=== PATIENT | female | born 1995 | race African-American/Black ===

== ENCOUNTER 2023-05-01 12:17 | Emergency (ER) | payer MEDICAID ==
[~2023-05-01] VITALS: Ht 170.2 cm; Wt 61.0 kg
[2023-05-01 12:33] VITALS: BP 121/79; PULSE 92; RESP 16; TEMP 98; O2SAT 100
[2023-05-01 13:28] LABS: CLARITY URINE CLEAR (CLEAR); COLOR URINE YELLOW (YELLOW); GLUCOSE URINE NEGATIVE (NEGATIVE); KETONES URINE 1+ (NEGATIVE); LEUKOCYTE ESTERASE URINE NEGATIVE (NEGATIVE); NITRITE URINE NEGATIVE (NEGATIVE); OCCULT BLOOD URINE NEGATIVE (NEGATIVE); PROTEIN URINE NEGATIVE (NEGATIVE); SPECIFIC GRAVITY URINE 1.014 (1.005-1.030); UROBILINOGEN URINE 0.2 E.U./dL (0.2-1.0)
[2023-05-01 14:17] LABS: BASOPHILS % 0.2 % (0.0-2.0); HEMOGLOBIN. 13.8 g/dL (12.0-16.0); LYMPHOCYTES % 21.4 % (20.0-50.0); MEAN CORPUSCULAR HEMOGLOBIN 32.2 pg (28.0-32.0); MEAN CORPUSCULAR HGB CONC 33.7 g/dL (31.0-37.0); MEAN CORPUSCULAR VOLUME 95.7 fL (81.0-99.0); MEAN PLATELET VOLUME 9.3 fl (7.4-10.4); MONOCYTES % 5.5 % (2.0-8.0); NEUTROPHILS % 72.9 % (40.0-76.0); PLATELET 245 x1000/uL (130-400); RED BLOOD CELL COUNT 4.28 mill/uL (4.2-5.4); RED CELL DISTRIBUTION WIDTH 13.6 % (11.6-14.6); WHITE BLOOD COUNT 6.6 x1000/uL (4.5-11.0)
[2023-05-01 15:13] LABS: ALANINE AMINOTRANSFERASE 10 IU/L (10-49); ALBUMIN 4.7 g/dL (3.2-4.8); ASPARTATE AMINOTRANSFERASE 22 IU/L (<34); BILIRUBIN TOTAL 0.6 mg/dL (0.1-1.0); CARBON DIOXIDE 23 mEq/L (21-32); CHLORIDE 104 mEq/L (98-107); CREATININE 0.6 mg/dL (0.6-1.0); GLUCOSE 94 mg/dL (70-105); POTASSIUM 3.5 mEq/L (3.5-5.1); PROTEIN TOTAL 7.5 g/dL (6.0-8.3); SODIUM 138 mEq/L (136-145); UREA NITROGEN BLOOD 11 mg/dL (9-23)
== END 2023-05-01 15:58 | disposition home or self-care (01) ==
LOC: ER 12:17
DX: N93.9 Abnormal uterine and vaginal bleeding, unspecified (principal); Z88.8 Allergy status to other drugs, medicaments and biological substances; Z88.3 Allergy status to other anti-infective agents
CPT/HCPCS: 36415; 80053; 81003; 81025; 85025; 86850; 86900; 99283

== ENCOUNTER 2024-01-10 07:37 | Emergency (ER) | payer MEDICAID ==
[~2024-01-10] VITALS: Ht 167.6 cm; Wt 66.0 kg
[2024-01-10 07:43] VITALS: BP 114/74; TEMP 98.3; O2SAT 98
[2024-01-10 07:47] VITALS: PULSE 112; RESP 18; O2SAT 100
[2024-01-10 10:04] LABS: BASOPHILS % 0.4 % (0.0-2.0); EOSINOPHILS % 0.6 % (0.0-5.0); HEMOGLOBIN. 13.3 g/dL (12.0-16.0); LYMPHOCYTES % 22.7 % (20.0-50.0); MEAN CORPUSCULAR HEMOGLOBIN 31.2 pg (28.0-32.0); MEAN CORPUSCULAR HGB CONC 33.3 g/dL (31.0-37.0); MEAN CORPUSCULAR VOLUME 93.6 fL (81.0-99.0); MONOCYTES % 7.8 % (2.0-8.0); NEUTROPHILS % 68.5 % (40.0-76.0); PLATELET 258 x1000/uL (130-400); RED BLOOD CELL COUNT 4.27 mill/uL (4.2-5.4); RED CELL DISTRIBUTION WIDTH 15.1 % (11.6-14.6); WHITE BLOOD COUNT 5.5 x1000/uL (4.5-11.0)
[2024-01-10 10:09] LABS: CHLORIDE 105 mEq/L (98-107); POTASSIUM 4.1 mEq/L (3.5-5.1); SODIUM 136 mEq/L (136-145)
[2024-01-10 10:10] LABS: CALCIUM 9.6 mg/dL (8.7-10.4); CARBON DIOXIDE 24 mEq/L (21-32)
[2024-01-10 10:15] LABS: CREATININE 0.5 mg/dL (0.6-1.0); GLUCOSE 88 mg/dL (70-105); UREA NITROGEN BLOOD 7 mg/dL (9-23)
[2024-01-10 10:22] LABS: HCG SCREEN POSITIVE
[2024-01-10 10:29] LABS: PROTHROMBIN TIME 11.1 sec (9.6-11.0)
== END 2024-01-10 11:36 | disposition home or self-care (01) ==
LOC: ER 07:37
DX: O20.0 Threatened abortion (principal); O26.891 Other specified pregnancy related conditions, first trimester; Z88.8 Allergy status to other drugs, medicaments and biological substances; Z88.3 Allergy status to other anti-infective agents; Z3A.09 9 weeks gestation of pregnancy
CPT/HCPCS: 36415; 76801; 80048; 84702; 84703; 85025; 99284

== ENCOUNTER 2024-02-26 10:07 | Emergency (ER) | payer MEDICAID ==
[~2024-02-26] VITALS: Ht 167.6 cm; Wt 66.0 kg
[2024-02-26 10:26] VITALS: O2SAT 98
[2024-02-26] MEDS ORDERED: AMOX1TAB16 MT (11:39)
[2024-02-26] MEDS: TETANUS, DIPHTHERIA, PERTUSSIS VAC/PF 0.5ML (>10YR OLD) IM ONE (12:01)
[2024-02-26 12:04] VITALS: BP 130/77; PULSE 82; RESP 18; TEMP 37.16964; O2SAT 98
== END 2024-02-26 12:06 | disposition home or self-care (01) ==
LOC: ER 10:07
DX: S61.235A Puncture wound without foreign body of left ring finger without damage to nail, initial encounter (principal); W55.01XA Bitten by cat, initial encounter; Y93.89 Activity, other specified; Y92.89 Other specified places as the place of occurrence of the external cause; Y99.8 Other external cause status
CPT/HCPCS: 73130; 90471; 90715; 99283

== ENCOUNTER 2024-03-20 05:49 | Emergency (ER) | payer MEDICAID ==
[~2024-03-20] VITALS: Ht 167.6 cm; Wt 79.0 kg
[~2024-03-20 05:49] MED LIST: AMOX1TAB16 MT
[2024-03-20 06:09] VITALS: O2SAT 97
[2024-03-20 06:12] VITALS: BP 110/72
[2024-03-20 07:29] LABS: BASOPHILS % 0.2 % (0.0-2.0); EOSINOPHILS % 0.1 % (0.0-5.0); HEMATOCRIT. 36.4 % (36.0-48.0); LYMPHOCYTES % 9.8 % (20.0-50.0); MEAN CORPUSCULAR HEMOGLOBIN 31.8 pg (28.0-32.0); MEAN CORPUSCULAR HGB CONC 32.8 g/dL (31.0-37.0); MEAN PLATELET VOLUME 9.3 fl (7.4-10.4); MONOCYTES % 7.1 % (2.0-8.0); NEUTROPHILS % 82.8 % (40.0-76.0); PLATELET 242 x1000/uL (130-400); RED BLOOD CELL COUNT 3.76 mill/uL (4.2-5.4); RED CELL DISTRIBUTION WIDTH 15.3 % (11.6-14.6)
[2024-03-20 07:41] LABS: CHLORIDE 109 mEq/L (98-107); POTASSIUM 3.6 mEq/L (3.5-5.1); SODIUM 138 mEq/L (136-145)
[2024-03-20 07:42] LABS: CALCIUM 9.1 mg/dL (8.7-10.4); CARBON DIOXIDE 22 mEq/L (21-32)
[2024-03-20 07:47] LABS: CREATININE 0.5 mg/dL (0.6-1.0); GLUCOSE 93 mg/dL (70-105); UREA NITROGEN BLOOD 6 mg/dL (9-23)
[2024-03-20 07:48] LABS: CLARITY URINE TURBID (CLEAR); COLOR URINE YELLOW (YELLOW); GLUCOSE URINE NEGATIVE (NEGATIVE); KETONES URINE TRACE (NEGATIVE); LEUKOCYTE ESTERASE URINE 2+ (NEGATIVE); NITRITE URINE NEGATIVE (NEGATIVE); OCCULT BLOOD URINE NEGATIVE (NEGATIVE); PH URINE 5.5 (4.5-8.0); PROTEIN URINE NEGATIVE (NEGATIVE); UROBILINOGEN URINE 0.2 E.U./dL (0.2-1.0)
[2024-03-20 07:49] LABS: ALANINE AMINOTRANSFERASE 37 IU/L (10-49); ALBUMIN 4.2 g/dL (3.2-4.8); ASPARTATE AMINOTRANSFERASE 20 IU/L (<34); BILIRUBIN TOTAL 0.4 mg/dL (0.1-1.0); PROTEIN TOTAL 6.5 g/dL (6.0-8.3)
[2024-03-20 08:05] LABS: B-HCG QUANTITATIVE 7267 mIU/mL (<3); BILIRUBIN DIRECT < 0.1 mg/dL (<=3.0)
[2024-03-20] MEDS: DEXAMETHASONE 4MG TABLET PO ONE (08:08)
[2024-03-20] MEDS: ACETAMINOPHEN 325MG TABLET PO ONE (08:08)
[2024-03-20 08:17] LABS: BACTERIA URINE 4+; SQUAMOUS EPITHELIAL CELL URINE 3+ /lpf (RARE/1+); YEAST URINE NONE SEEN
[2024-03-20] MEDS ORDERED: CEFP200T13 MT (08:34)
[2024-03-20] MEDS: CEFTRIAXONE SODIUM 1G VIAL IM ONE (09:06)
[2024-03-20] MEDS: LIDOCAINE HCL 1% 20ML VIAL INFIL ONE (09:06)
[2024-03-20 09:15] VITALS: PULSE 95; RESP 16; TEMP 36.83628; O2SAT 98
== END 2024-03-20 11:38 | disposition home or self-care (01) ==
LOC: ER 06:12
DX: O99.512 Diseases of the respiratory system complicating pregnancy, second trimester (principal); J06.9 Acute upper respiratory infection, unspecified; Z20.822 Contact with and (suspected) exposure to COVID-19; Z3A.19 19 weeks gestation of pregnancy
CPT/HCPCS: 80076; 80048; 81003; 81025; 84702; 85025; 86850; 86900; 86901; 87804 ×2; 36415; 76805; 96372; 99285; 87426; J8540; J0696; J3490; Z7610